=== PATIENT | female | born 1995 | race Caucasian/White ===

== ENCOUNTER 2025-05-20 13:24 | Emergency (ER) | payer MEDICAID, SELFPAY ==
[2025-05-20 13:25] VITALS: BMI 34.7
[2025-05-20 13:48] VITALS: BP 146/85; PULSE 98; RESP 18; TEMP 36.6; O2SAT 99
--- NOTE | 2025-05-20 14:11 | PD.EDRME ---
Rapid Medical Screening Exam E Arrival date/time: 05/20/25 13:24 This is a 29-year-old female that comes into the emergency room with complaints of left flank pain that started prior to arrival. Patient complains of nausea. Patient states that the flank pain radiates to her left groin. Patient denies any past medical history. I have greeted and performed a focused initial assessment of this patient. Initial appropriate labs ordered at this time. A comprehensive ED assessment and evaluation of the patient and analysis of all test and completion of medical decision making process will be conducted by additional ED provider. Chief Complaint: Abdominal Pain Time Seen by Provider: 05/20/25 14:03 Vital signs: Vital Signs Temperature 97.9 F 05/20/25 13:48 Pulse Rate 98 05/20/25 13:48 Respiratory Rate 18 05/20/25 13:48 Blood Pressure 146/85 H 05/20/25 13:48 Pulse Oximetry (%) 99 05/20/25 13:48 Oxygen Delivery Method Room Air 05/20/25 13:48
[2025-05-20] MEDS: HYDROcodone/APAP 5/325 TABLET 1 TAB PO (14:20)
[2025-05-20] MEDS: ONDANSETRON ODT 4 MG TABRAP PO (14:20)
[2025-05-20 14:37] LABS: Basophils # (Auto) 0.0 Thou/mm3 (0.0-0.2); Basophils % (Auto) 0 % (0-2.5); Eosinophils # (Auto) 0.0 Thou/mm3 (0.0-0.5); Eosinophils % (Auto) 0 % (0-10); Hematocrit 39.4 % (36.0-46.0); Hemoglobin 13.5 g/dL (12.0-16.0); Immature Granulocytes Auto 0.03 Thou/mm3 (0.00-0.00); Lymphocytes # (Auto) 1.5 Thou/mm3 (1.0-4.8); Lymphocytes % (Auto) 18 % (10-50); Mean Corpuscular HGB Conc 34.3 g/dl (31.0-37.0); Mean Corpuscular Hemoglobin 29.7 pg (25.0-35.0); Mean Corpuscular Volume 87 fL (80-100); Monocytes # (Auto) 0.5 Thou/mm3 (0.0-0.8); Monocytes % (Auto) 7 % (0-12); Neutrophils # (Auto) 6.2 Thou/mm3 (1.8-7.7); Neutrophils % (Auto) 75 % (37-80); Nucleated Red Blood Cell # 0.00 Thou/mm3 (0.00-0.00); Nucleated Red Blood Cell % 0 /100 WBC (0); Platelet Count 240 Thou/mm3 (140-440); RDW Standard Deviation 39.2 fL (36.4-46.3); Red Blood Count 4.55 Miln/mm3 (4.00-5.20); White Blood Count 8.3 Thou/mm3 (3.6-11.0)
[2025-05-20 14:56] LABS: Alanine Aminotransferase 62 U/L (10-49); Albumin, Serum 4.3 gm/dL (3.5-5.0); Albumin/Globulin Ratio 1.7 (1.2-2.2); Alkaline Phosphatase 70 U/L (46-116); Anion Gap 10 (7-16); Aspartate Amino Transferase 185 U/L (0-34); BUN/Creatinine Ratio 7 Ratio (12-20); Bilirubin,Total 0.4 mg/dL (0.3-1.2); Blood Urea Nitrogen 6 mg/dL (9-23); Calcium 9.4 mg/dL (8.3-10.6); Calcium (Corrected) 9.4 mg/dL (8.5-10.1); Carbon Dioxide 25.6 mMol/L (20.0-31.0); Chloride 106 mMol/L (98-107); Creatinine (Component) 0.9 mg/dL (0.6-1.3); Estimated Creatinine Clearance 93.1 mL/min (>60); Globulin 2.6 gm/dL (2.3-3.5); Glucose 114 mg/dL (74-106); Lipase 35 U/L (12-53); Osmolality,Calculated 281 (275-295); Potassium 4.4 mMol/L (3.4-5.1); Sodium 142 mMol/L (136-145); Total Protein 6.9 gm/dL (5.7-8.2); eGFR > 60 See Note
[2025-05-20 15:55] LABS: Collection Type, Urine Voided
[2025-05-20 16:39] LABS: Bacteria,Urine 4+; Bilirubin,Urine Negative (Negative); Blood,Urine 3+ (Negative); Color,Urine Yellow (Lt Yel-Yel); Culture Indicated,Urine Contaminated; Glucose, Urine Negative (Negative); Ketones,Urine Trace (Negative); Leukocyte Esterase,Urine Positive (Negative); Nitrite,Urine Negative (Negative); PH,Urine 6.0 (5.0-7.0); Protein,Urine 1+ (Neg - Trace); RBC,Urine 111 /hpf (0-3); Specific Gravity,Urine 1.029 (1.001-1.035); Squamous Epithelial Cell,Urine 23 /hpf (0-5); Urobilinogen,Urine Negative mg/dL (0.0-1.0); WBC,Urine 8 /hpf (0-5)
[2025-05-20 16:54] LABS: Clarity,Urine Turbid (Clear/Hazy)
[2025-05-20 16:58] LABS: HCG Qualitative,Urine Negative
--- NOTE | 2025-05-20 17:30 | XR_ITS ---
Examination: CT abdomen and pelvis without contrast. Coronal 3-D reconstructions. Sagittal 2-D reconstructions. Date and time of exam:May 20, [id number] Indications: Onset left-sided flank pain today CTDI: vol (mGy): 14 DLP: (mGycm): 695 Technique: Axial images of the abdomen have been obtained, 3 mm slice thickness Intravenous contrast material has not been administered. Low dose protocols were performed. One or more of the following dose reduction techniques were used; automated exposure control, adjustment of the mA and/or KV according to patient size, use of iterative reconstruction technique. Findings: No focal liver or splenic lesions No gallstones No pancreatic or adrenal mass 2 mm 1 mm right renal calculi Minimal dilatation left renal pelvis and proximal left ureter Normal appendix No bowel obstruction No pelvic mass No bladder mass or bladder calculi The osseous structures are intact Impression: Minimal dilatation of the left renal pelvis and proximal ureter, consider recent passage of a left renal calculus or urinary tract infection Tiny nonobstructing right renal calculi
--- NOTE | 2025-05-20 17:31 | PD.EDNV ---
Nausea/Vomit./Diarrhea-RME/HPI General Chief complaint: Abdominal Pain Stated complaint: L BACK PAIN RADIATING TO L LOWER ABD X1 HR Time Seen by Provider: 05/20/25 14:03 Arrival date/time: 05/20/25 13:24 RME / HPI RME / HPI Narrative: 29-year-old female that comes into the emergency room with complaints of left flank pain that started prior to arrival. Patient complains of nausea. Patient states that the flank pain radiates to her left groin. Patient denies any past medical history. Patient denies any fever denies any other complaints no medication taken prior to ER visit. Related Data Previous Rx's ?Medication ?Instructions ?Recorded ketorolac 10 mg tablet 10 mg PO Q8H PRN pain 5 days #20 05/20/25 tabs tamsulosin 0.4 mg capsule (Flomax) 0.4 mg PO QDAY #10 caps 05/20/25 Allergies Allergy/AdvReac Type Severity Reaction Status Date / Time No Known Allergies Allergy Unverified 05/20/25 14:11 Review of Systems Review of Systems Narrative Review of Systems: Review of system reviewed and within normal limits except mentioned in HPI ED Exam Narrative Physical exam: VITAL SIGNS: Reviewed. GENERAL APPEARANCE: Alert and interactive, follows commands, no acute distress, HEAD AND FACE: Non-traumatic. ENT: PERRL, pink conjunctivitis, eyelid no trauma, Mucous membrane moist. NECK: Supple, nontender, no nuchal rigidity. CHEST: No tenderness, no crepitus, no paradoxical movement, no retractions. LUNGS: Clear, well ventilated, symmetric, no rales, no wheezing, no ronchi, no stridor, good breath sounds bilaterally. HEART: Regular rate, regular rhythm, no murmur, no gallops. ABDOMEN: Soft, positive bowel sounds, nondistended, no guarding, no rebound, no masses, left lower abdominal tenderness RECTAL: Deferred. GENITAL: Deferred. NEUROLOGICAL: Gross motor function intact sensory function intact, Appropriate for age. MUSCULOSKELETAL: low back nontender, full range of motion. EXTREMITIES: Nontender, full range of motion. SKIN: Color pink, dry, no rash, no lacerations, no abrasions, no contusions. LYMPHATICS: Deferred. Course Quality Measures none Orders Category Date Time Status CT abdomen pelvis wo con Stat Exams 05/20/25 17:30 Completed CBC Stat Lab 05/20/25 14:23 Completed Comprehensive Metabolic Panel Stat Lab 05/20/25 14:23 Completed HCG Qualitative,Urine Stat Lab 05/20/25 15:43 Completed Lipase Stat Lab 05/20/25 14:23 Completed Urinalysis, C/S if Indicated Stat Lab 05/20/25 15:43 Completed HYDROcodone*/APAP 5/325 [[place] 5/325] Med 05/20/25 14:10 Discontinued 1 tab PO X1 ONE Ketorolac Inj [Toradol Inj] Med 05/20/25 17:30 Discontinued 30 mg IM X1 ONE Ondansetron Odt [Zofran Odt] Med 05/20/25 14:10 Discontinued 4 mg PO X1 ONE Tamsulosin HCl [Flomax] Med 05/20/25 17:30 Discontinued 0.4 mg PO X1 ONE Vital Signs Vital signs: Vital Signs Temperature 97.9 F 05/20/25 13:48 Pulse Rate 98 05/20/25 13:48 Respiratory Rate 18 05/20/25 13:48 Blood Pressure 146/85 H 05/20/25 13:48 Pulse Oximetry (%) 99 05/20/25 13:48 Oxygen Delivery Method Room Air 05/20/25 13:48 Nausea/Vomiting/Diarrhea MDM Narrative MDM Narrative:: 29-year-old female that comes into the emergency room with complaints of left flank pain that started prior to arrival. Patient complains of nausea. Patient states that the flank pain radiates to her left groin. Patient denies any past medical history. Patient denies any fever denies any other complaints no medication taken prior to ER visit. Patient's workup today all came back unremarkable urinalysis is contaminated, she is not having any UTI. CT scan of the abdomen and pelvis showed Minimal dilatation of the left renal pelvis and proximal ureter, consider recent passage of a left renal calculus or urinary tract infection Tiny nonobstructing right renal calculi Patient was given a copy of her CT scan. Advised her to drink a lot of fluids, follow-up with PCP, and for referral to urologist as needed. Patient was sent home on Toradol and Flomax Patient data External records reviewed:: None Clinical information provided by:: none Social determinants that could affect healthcare access:: none Patient has the following chronic illnesses:: None How is presenting disease/condition affected by chronic disease/condition?: no chronic disease Evaluation data The following diagnostics were reviewed and interpreted by me:: lab results and radiology exam(s) Lab and/or radiology exams considered but not ordered:: None Interpretation Summary: See results in [facility] Medications / Prescriptions Medications / Prescriptions considered but not ordered:: None Medication administrations:: Medication Administration History Discontinued Medications Hydrocodone Bitart/Acetaminophen (Hydrocodone/Apap 5/325 Tablet) 1 tab PO X1 ONE Stop: 05/20/25 14:11 Last Admin: 05/20/25 14:20 Dose: 1 tab Documented By: MATTHEW Ketorolac Tromethamine (Ketorolac Inj 30 Mg/Ml Vial) 30 mg IM X1 ONE Stop: 05/20/25 17:31 Last Admin: 05/20/25 19:17 Dose: Not Given Documented By: ZACH Non-Admin Reason: Patient Refused Ondansetron HCl (Ondansetron Odt 4 Mg Tabrap) 4 mg PO X1 ONE; Protocol Stop: 05/20/25 14:11 Last Admin: 05/20/25 14:20 Dose: 4 mg Documented By: MATTHEW Tamsulosin HCl (Tamsulosin Hcl 0.4 Mg Capsule) 0.4 mg PO X1 ONE Stop: 05/20/25 17:31 Last Admin: 05/20/25 17:41 Dose: 0.4 mg Documented By: JEAN She has [place], Zofran and Flomax previous Toradol Consultations Consultation(s) initiated? (list below): No Diagnosis Nausea Differential Diagnosis: dehydration and other (Renal colic, kidney stones, UTI) Most likely diagnosis given after review of the tests above:: Renal colic, nephrolithiasis Admission Indicated Admission indicated?: not indicated Explain why admission is indicated or not indicated:: Stable Admission Request Was there a request for admission?: No Disposition Plan Disposition Plan: Discharge Discharge Attestation Discharge Attestation: The patient and all family members were given an opportunity to ask questions and understood the discharge instructions. Discharge instructions specifically effects, indications for sooner follow up or return to the emergency department, and the expected course of current diagnosis. Patient condition: Stable Discharge Plan Plan Patient Disposition: HOME (Self Care) Discharge Disposition comment: Stable Prescriptions/Referrals Prescriptions/Med Rec: New ketorolac 10 mg tablet 10 mg PO Q8H PRN (Reason: pain) 5 Days Qty: 20 0RF tamsulosin [Flomax] 0.4 mg capsule 0.4 mg PO QDAY Qty: 10 0RF Referrals: Juliane Young [facility],Socorro Garcia [employer] [facility] [Primary Care Provider, Family Practice] - In 1 week Problem List Clinical Impression: Renal colic, Kidney stone Patient/Caregiver Discharge Instructions Discharge Activity: activity as tolerated Education Materials: ED Kidney Stone w/ Colic Additional Instructions: Thank you for the opportunity for serving you today. You are stable for discharged . You are advised to: Follow-up with your PCP in 1 to 2 days Return to ED for worsening of symptoms Increase oral fluids Take medication as prescribed Print Language: Malaysian Stand Alone Forms: Cortney Award Info., Patient Portal Info Letter PA/KATELYN Supervising Physician PA/KATELYN Supervising Physician: MD Ariadne
[2025-05-20] MEDS: TAMSULOSIN HCL 0.4 MG CAPSULE PO (17:41)
[2025-05-20 19:44] VITALS: BP 137/80; PULSE 64; RESP 16; O2SAT 98
== END 2025-05-20 19:45 | disposition home or self-care (01) ==
PROVIDERS: Nurse Practitioner Family; Emergency Provider Emergency Medicine; PCP Nurse Practitioner Family
DX: N20.0 Calculus of kidney (principal)
CPT/HCPCS: 36415; 74176; 80053; 81001; 81025; 83690; 85025; 99283; Q0162; A9270

== ENCOUNTER → 2025-08-02 | Outpatient (BNVA) | payer MEDICAID, SELFPAY | END | disposition home or self-care (01) | PROVIDERS: PCP Nurse Practitioner Family; Referring Provider Nurse Practitioner Family; Visit Provider Nurse Practitioner Family | DX: J02.9 Acute pharyngitis, unspecified (principal) | CPT/HCPCS: 87804; 87811; 99213 ==